=== PATIENT | male | born 1995 | race Caucasian/White ===

== ENCOUNTER 2017-11-18 16:09 | Emergency (ER) | payer MEDICAID | END 2017-11-18 18:25 | disposition home or self-care (01) | LOC: E/R 18:25 | DX: S89.92XA Unspecified injury of left lower leg, initial encounter (principal); W18.39XA Other fall on same level, initial encounter; Y92.9 Unspecified place or not applicable | CPT/HCPCS: 73510; 73550; 99283-25 ==

== ENCOUNTER 2017-11-30 22:28 | Emergency (ER) | payer MEDICAID ==
[2017-11-30] MEDS: KETOROLAC 30 MG INJ IM (23:18)
[2017-12-01] MEDS: DIAZEPAM 5 MG TAB PO (00:56)
== END 2017-12-01 01:13 | disposition home or self-care (01) ==
LOC: FTE 12-01 01:13
DX: M54.42 Lumbago with sciatica, left side (principal); G89.29 Other chronic pain; R40.2412 Glasgow coma scale score 13-15, at arrival to emergency department
CPT/HCPCS: 72100; 96372; 99284-25

== ENCOUNTER 2017-12-14 18:35 | Emergency (ER) | payer MEDICAID ==
[2017-12-14] MEDS: KETOROLAC 60 MG INJ IM (21:47)
== END 2017-12-14 22:36 | disposition home or self-care (01) ==
LOC: FTE 22:36
DX: M54.42 Lumbago with sciatica, left side (principal)
CPT/HCPCS: 72131; 96372; 99285-25

== ENCOUNTER 2018-09-26 09:13 | Emergency (ER) | payer MEDICAID ==
[2018-09-26] MEDS: HYDROCODONE/APAP (5/325) TAB PO (10:02)
== END 2018-09-26 13:09 | disposition home or self-care (01) ==
LOC: FTE 09:13
DX: S29.001A Unspecified injury of muscle and tendon of front wall of thorax, initial encounter (principal); R07.81 Pleurodynia; W01.198A Fall on same level from slipping, tripping and stumbling with subsequent striking against other object, initial encounter; Y92.9 Unspecified place or not applicable
CPT/HCPCS: 71045; 71100; 73562; 76705; 99284-25